=== PATIENT | female | born 1940 | race Caucasian/White ===

== ENCOUNTER 2020-08-30 03:01 | Outpatient (RCR) | payer MEDICARE, OTHER, SELFPAY ==
[2020-08-02 10:23] LABS: Abs Immature Grans 0.01 10^3/uL (0.0-0.06); Absolute Basophil Count 0.04 10^3/uL (0.0-0.2); Absolute Eosinophil Count 0.49 10^3/uL (0.0-0.7); Absolute Lymphocyte Count 1.63 10^3/uL (1.2-3.4); Absolute Monocyte Count 0.57 10^3/uL (0.1-0.8); Absolute Neutrophil Count 4.72 10^3/uL (1.2-6.7); Basophils % 0.5; Eosinophils % 6.6; HCT 31.7 % (36.0-46.0); Immature Grans % 0.1; Lymphocytes % 21.8; MCH 28.4 pg (27.0-33.0); MCHC 31.5 % (32.0-36.0); MCV 90.1 fL (80-95); Monocytes % 7.6; Neutrophils % 63.4; Nucleated RBC 0 %; Platelet Count 237 10^3/uL (130-400); RBC 3.52 10^6/uL (3.93-5.22); RDW 12.9 % (11.7-14.6); RDW-SD 42.3 fL; WBC 7.46 10^3/uL (4.4-10.8)
[2020-08-02 10:45] LABS: ALT 52 U/L (14-59); AST 37 U/L (15-37); Alkaline Phosphatase 141 U/L (46-116); Anion Gap 8.4 mmol/L (3-11); BUN 23 mg/dL (7-18); Bilirubin, Total 0.5 mg/dL (0.2-1.0); CO2 29.6 mmol/L (21.0-32.0); CREATININE 1.1 mg/dL (0.55-1.02); Chloride 103 mmol/L (98-107); Estimated GFR 47.91 (mL/min/1.73m2); FREE T4 1.11 ng/dL (0.76-1.46); Glucose 141 mg/dL (74-106); Potassium 3.2 mmol/L (3.5-5.1); Sodium 141 mmol/L (136-145); Total Protein 6.9 g/dL (6.4-8.2)
[2020-08-09] MEDS: Normal Saline Flush 10 ML SYR IVP (12:13)
[2020-08-09 14:11] LABS: HCT 30.7 % (36.0-46.0); HGB 9.8 g/dL (11.2-15.7); MCH 28.3 pg (27.0-33.0); MCHC 31.9 % (32.0-36.0); MCV 88.7 fL (80-95); MPV 10.5 fL (8.0-11.0); Platelet Count 334 10^3/uL (130-400); RBC 3.46 10^6/uL (3.93-5.22); RDW 12.9 % (11.7-14.6); RDW-SD 41.6 fL
[2020-08-09 14:12] LABS: Abs Immature Grans 0.01 10^3/uL (0.0-0.06); Absolute Basophil Count 0.04 10^3/uL (0.0-0.2); Absolute Eosinophil Count 0.32 10^3/uL (0.0-0.7); Absolute Lymphocyte Count 1.86 10^3/uL (1.2-3.4); Absolute Monocyte Count 0.35 10^3/uL (0.1-0.8); Absolute Neutrophil Count 4.22 10^3/uL (1.2-6.7); Basophils % 0.6; Eosinophils % 4.7; Immature Grans % 0.1; Lymphocytes % 27.4; Monocytes % 5.1; Neutrophils % 62.1; Nucleated RBC 0 %
[2020-08-09 14:13] LABS: Albumin 3.1 g/dL (3.4-5.0); Alkaline Phosphatase 161 U/L (46-116); BUN 22 mg/dL (7-18); Bilirubin, Total 0.4 mg/dL (0.2-1.0); CREATININE 1.1 mg/dL (0.55-1.02); Calcium 9.4 mg/dL (8.5-10.1); Chloride 104 mmol/L (98-107); Estimated GFR 47.91 (mL/min/1.73m2); Glucose 116 mg/dL (74-106); Sodium 139 mmol/L (136-145); Total Protein 7.3 g/dL (6.4-8.2)
[2020-08-09 14:14] LABS: ALT 37 U/L (14-59); AST 21 U/L (15-37); Anion Gap 8.4 mmol/L (3-11); CO2 26.6 mmol/L (21.0-32.0); FREE T4 1.19 ng/dL (0.76-1.46); TSH 2.65 uIU/mL (0.36-3.74)
[2020-08-10 20:05] LABS: Cancer Ag 15-3 27 U/mL (<30)
[2020-08-16] MEDS: Normal Saline Flush 10 ML SYR IVP (09:24)
[2020-08-16 09:43] LABS: Abs Immature Grans 0.03 10^3/uL (0.0-0.06); Absolute Basophil Count 0.05 10^3/uL (0.0-0.2); Absolute Eosinophil Count 0.23 10^3/uL (0.0-0.7); Absolute Lymphocyte Count 1.62 10^3/uL (1.2-3.4); Absolute Monocyte Count 0.34 10^3/uL (0.1-0.8); Absolute Neutrophil Count 3.63 10^3/uL (1.2-6.7); Basophils % 0.8; Eosinophils % 3.9; HCT 29.5 % (36.0-46.0); HGB 9.6 g/dL (11.2-15.7); Immature Grans % 0.5; Lymphocytes % 27.5; MCH 28.7 pg (27.0-33.0); MCHC 32.5 % (32.0-36.0); MCV 88.1 fL (80-95); MPV 10.7 fL (8.0-11.0); Monocytes % 5.8; Neutrophils % 61.5; Nucleated RBC 0 %; Platelet Count 396 10^3/uL (130-400); RBC 3.35 10^6/uL (3.93-5.22); RDW 13.2 % (11.7-14.6); RDW-SD 41.9 fL
[2020-08-16 09:55] LABS: ALT 26 U/L (14-59); AST 17 U/L (15-37); Albumin 2.9 g/dL (3.4-5.0); Alkaline Phosphatase 149 U/L (46-116); Anion Gap 8.4 mmol/L (3-11); BUN 21 mg/dL (7-18); Bilirubin, Total 0.4 mg/dL (0.2-1.0); CO2 27.6 mmol/L (21.0-32.0); CREATININE 1.1 mg/dL (0.55-1.02); Chloride 104 mmol/L (98-107); Estimated GFR 47.91 (mL/min/1.73m2); Glucose 125 mg/dL (74-106); Potassium 3.5 mmol/L (3.5-5.1); Sodium 140 mmol/L (136-145); Total Protein 7.2 g/dL (6.4-8.2)
[2020-08-30] MEDS: Normal Saline Flush 10 ML SYR IVP (09:41)
[2020-08-30 09:59] LABS: Absolute Basophil Count 0.05 10^3/uL (0.0-0.2); Absolute Eosinophil Count 0.36 10^3/uL (0.0-0.7); Absolute Lymphocyte Count 2.03 10^3/uL (1.2-3.4); Absolute Monocyte Count 0.98 10^3/uL (0.1-0.8); Absolute Neutrophil Count 5.16 10^3/uL (1.2-6.7); Basophils % 0.6; Eosinophils % 4.1; HCT 29.9 % (36.0-46.0); HGB 9.5 g/dL (11.2-15.7); Immature Grans % 1.2; Lymphocytes % 23.4; MCH 28.3 pg (27.0-33.0); MCHC 31.8 % (32.0-36.0); MPV 10.7 fL (8.0-11.0); Monocytes % 11.3; Neutrophils % 59.4; Nucleated RBC 0 %; Platelet Count 354 10^3/uL (130-400); RBC 3.36 10^6/uL (3.93-5.22); RDW 14.2 % (11.7-14.6); RDW-SD 45.6 fL; WBC 8.68 10^3/uL (4.4-10.8)
[2020-08-30 10:21] LABS: ALT 28 U/L (14-59); AST 21 U/L (15-37); Albumin 2.9 g/dL (3.4-5.0); Alkaline Phosphatase 182 U/L (46-116); Anion Gap 6.9 mmol/L (3-11); BUN 16 mg/dL (7-18); Bilirubin, Total 0.4 mg/dL (0.2-1.0); CO2 30.1 mmol/L (21.0-32.0); Calcium 8.6 mg/dL (8.5-10.1); Chloride 103 mmol/L (98-107); Estimated GFR 53.48 (mL/min/1.73m2); FREE T4 1.23 ng/dL (0.76-1.46); Glucose 106 mg/dL (74-106); Potassium 3.6 mmol/L (3.5-5.1); Sodium 140 mmol/L (136-145); TSH 2.66 uIU/mL (0.36-3.74)
== END 2020-08-31 23:59 | disposition home or self-care (01) ==
LOC: INF 03:01
PROVIDERS: PCP Family Medicine; Visit Provider Internal Medicine
DX: C50.919 Malignant neoplasm of unspecified site of unspecified female breast (principal); R94.6 Abnormal results of thyroid function studies; C77.1 Secondary and unspecified malignant neoplasm of intrathoracic lymph nodes; Z45.2 Encounter for adjustment and management of vascular access device
CPT/HCPCS: 36415; 36591; 80053; 86304; 84439; 84443; 85025; 86300

== ENCOUNTER 2020-09-27 02:36 | Outpatient (RCR) | payer MEDICARE, OTHER, SELFPAY ==
[2020-09-06] MEDS: Normal Saline Flush 10 ML SYR IVP (09:43)
[2020-09-06 09:57] LABS: Abs Immature Grans 0.04 10^3/uL (0.0-0.06); Absolute Basophil Count 0.04 10^3/uL (0.0-0.2); Absolute Eosinophil Count 0.42 10^3/uL (0.0-0.7); Absolute Lymphocyte Count 2.09 10^3/uL (1.2-3.4); Basophils % 0.5; Eosinophils % 5.5; HCT 30.1 % (36.0-46.0); HGB 9.7 g/dL (11.2-15.7); Immature Grans % 0.5; Lymphocytes % 27.2; MCH 28.3 pg (27.0-33.0); MCHC 32.2 % (32.0-36.0); MCV 87.8 fL (80-95); MPV 10.6 fL (8.0-11.0); Monocytes % 5.2; Neutrophils % 61.1; Nucleated RBC 0 %; Platelet Count 391 10^3/uL (130-400); RBC 3.43 10^6/uL (3.93-5.22); RDW 14.2 % (11.7-14.6); RDW-SD 45.1 fL; WBC 7.69 10^3/uL (4.4-10.8)
[2020-09-06 10:24] LABS: ALT 24 U/L (14-59); AST 16 U/L (15-37); Alkaline Phosphatase 174 U/L (46-116); Anion Gap 10.3 mmol/L (3-11); BUN 25 mg/dL (7-18); Bilirubin, Total 0.4 mg/dL (0.2-1.0); CO2 28.7 mmol/L (21.0-32.0); Calcium 9.2 mg/dL (8.5-10.1); Chloride 100 mmol/L (98-107); Estimated GFR 53.48 (mL/min/1.73m2); FREE T4 1.23 ng/dL (0.76-1.46); Glucose 147 mg/dL (74-106); Potassium 3.3 mmol/L (3.5-5.1); Sodium 139 mmol/L (136-145); TSH 2.87 uIU/mL (0.36-3.74); Total Protein 7.2 g/dL (6.4-8.2)
[2020-09-13] MEDS: Normal Saline Flush 10 ML SYR IVP (09:22)
[2020-09-13 09:33] LABS: Abs Immature Grans 0.03 10^3/uL (0.0-0.06); Absolute Basophil Count 0.05 10^3/uL (0.0-0.2); Absolute Eosinophil Count 0.42 10^3/uL (0.0-0.7); Absolute Lymphocyte Count 1.88 10^3/uL (1.2-3.4); Absolute Monocyte Count 0.36 10^3/uL (0.1-0.8); Absolute Neutrophil Count 3.91 10^3/uL (1.2-6.7); Basophils % 0.8; Eosinophils % 6.3; HGB 9.6 g/dL (11.2-15.7); Immature Grans % 0.5; Lymphocytes % 28.3; MCH 28.7 pg (27.0-33.0); MCV 89.6 fL (80-95); MPV 10.7 fL (8.0-11.0); Monocytes % 5.4; Neutrophils % 58.7; Nucleated RBC 0 %; Platelet Count 369 10^3/uL (130-400); RBC 3.35 10^6/uL (3.93-5.22); RDW-SD 46.8 fL; WBC 6.65 10^3/uL (4.4-10.8)
[2020-09-13 10:05] LABS: ALT 22 U/L (14-59); AST 18 U/L (15-37); Albumin 3.2 g/dL (3.4-5.0); Alkaline Phosphatase 187 U/L (46-116); Anion Gap 9.6 mmol/L (3-11); BUN 27 mg/dL (7-18); Bilirubin, Total 0.5 mg/dL (0.2-1.0); CO2 26.4 mmol/L (21.0-32.0); CREATININE 1.2 mg/dL (0.55-1.02); Calcium 9.2 mg/dL (8.5-10.1); Chloride 103 mmol/L (98-107); Estimated GFR 43.34 (mL/min/1.73m2); FREE T4 1.19 ng/dL (0.76-1.46); Glucose 106 mg/dL (74-106); Potassium 4.5 mmol/L (3.5-5.1); Sodium 139 mmol/L (136-145); TSH 3.52 uIU/mL (0.36-3.74); Total Protein 7.4 g/dL (6.4-8.2)
[2020-09-27] MEDS: Normal Saline Flush 10 ML SYR IVP (09:16)
[2020-09-27 09:34] LABS: Abs Immature Grans 0.07 10^3/uL (0.0-0.06); Absolute Basophil Count 0.05 10^3/uL (0.0-0.2); Absolute Eosinophil Count 0.34 10^3/uL (0.0-0.7); Absolute Lymphocyte Count 2.05 10^3/uL (1.2-3.4); Absolute Monocyte Count 1.06 10^3/uL (0.1-0.8); Absolute Neutrophil Count 6.66 10^3/uL (1.2-6.7); Basophils % 0.5; Eosinophils % 3.3; HCT 30.3 % (36.0-46.0); HGB 9.6 g/dL (11.2-15.7); Immature Grans % 0.7; MCH 28.8 pg (27.0-33.0); MCHC 31.7 % (32.0-36.0); MPV 10.4 fL (8.0-11.0); Monocytes % 10.4; Neutrophils % 65.1; Nucleated RBC 0 %; Platelet Count 370 10^3/uL (130-400); RBC 3.33 10^6/uL (3.93-5.22); RDW 16.4 % (11.7-14.6); RDW-SD 53.2 fL; WBC 10.23 10^3/uL (4.4-10.8)
[2020-09-27 09:58] LABS: ALT 22 U/L (14-59); AST 17 U/L (15-37); Albumin 3.1 g/dL (3.4-5.0); Alkaline Phosphatase 177 U/L (46-116); Anion Gap 6.9 mmol/L (3-11); BUN 18 mg/dL (7-18); Bilirubin, Total 0.4 mg/dL (0.2-1.0); CO2 28.1 mmol/L (21.0-32.0); Calcium 9.1 mg/dL (8.5-10.1); Chloride 107 mmol/L (98-107); Estimated GFR 53.48 (mL/min/1.73m2); FREE T4 1.24 ng/dL (0.76-1.46); Glucose 109 mg/dL (74-106); Sodium 142 mmol/L (136-145); TSH 3.11 uIU/mL (0.36-3.74)
== END 2020-09-30 23:59 | disposition home or self-care (01) ==
LOC: INF 02:36
PROVIDERS: PCP Family Medicine; Visit Provider Internal Medicine
DX: C50.919 Malignant neoplasm of unspecified site of unspecified female breast (principal); R94.6 Abnormal results of thyroid function studies; C77.1 Secondary and unspecified malignant neoplasm of intrathoracic lymph nodes
CPT/HCPCS: 36415; 80053; 84439; 84443; 85025

== ENCOUNTER 2020-10-25 02:48 | Outpatient (RCR) | payer MEDICARE, OTHER, SELFPAY ==
[2020-10-04] MEDS: Normal Saline Flush 10 ML SYR IVP (08:57)
[2020-10-04 09:09] LABS: Abs Immature Grans 0.03 10^3/uL (0.0-0.06); Absolute Basophil Count 0.05 10^3/uL (0.0-0.2); Absolute Eosinophil Count 0.29 10^3/uL (0.0-0.7); Absolute Lymphocyte Count 1.68 10^3/uL (1.2-3.4); Absolute Monocyte Count 0.55 10^3/uL (0.1-0.8); Absolute Neutrophil Count 3.66 10^3/uL (1.2-6.7); Basophils % 0.8; Eosinophils % 4.6; HCT 29.1 % (36.0-46.0); HGB 9.2 g/dL (11.2-15.7); Immature Grans % 0.5; Lymphocytes % 26.8; MCH 28.9 pg (27.0-33.0); MCHC 31.6 % (32.0-36.0); MCV 91.5 fL (80-95); MPV 10.2 fL (8.0-11.0); Monocytes % 8.8; Neutrophils % 58.5; Nucleated RBC 0 %; Platelet Count 352 10^3/uL (130-400); RBC 3.18 10^6/uL (3.93-5.22); RDW-SD 52.5 fL; WBC 6.26 10^3/uL (4.4-10.8)
[2020-10-04 09:30] LABS: ALT 22 U/L (14-59); AST 15 U/L (15-37); Alkaline Phosphatase 150 U/L (46-116); Anion Gap 8.7 mmol/L (3-11); BUN 22 mg/dL (7-18); Bilirubin, Total 0.5 mg/dL (0.2-1.0); CO2 29.3 mmol/L (21.0-32.0); CREATININE 1.1 mg/dL (0.55-1.02); Calcium 9.3 mg/dL (8.5-10.1); Chloride 104 mmol/L (98-107); Estimated GFR 47.91 (mL/min/1.73m2); FREE T4 1.21 ng/dL (0.76-1.46); Glucose 110 mg/dL (74-106); Potassium 3.6 mmol/L (3.5-5.1); Sodium 142 mmol/L (136-145); TSH 3.23 uIU/mL (0.36-3.74); Total Protein 7.1 g/dL (6.4-8.2)
[2020-10-07 16:47] LABS: Cancer Ag 15-3 30 U/mL (<30)
[2020-10-11] MEDS: Normal Saline Flush 10 ML SYR IVP (09:36)
[2020-10-11 09:43] LABS: Abs Immature Grans 0.03 10^3/uL (0.0-0.06); Absolute Basophil Count 0.04 10^3/uL (0.0-0.2); Absolute Eosinophil Count 0.25 10^3/uL (0.0-0.7); Absolute Lymphocyte Count 1.59 10^3/uL (1.2-3.4); Absolute Monocyte Count 0.34 10^3/uL (0.1-0.8); Absolute Neutrophil Count 3.35 10^3/uL (1.2-6.7); Basophils % 0.7; Eosinophils % 4.5; HCT 28.1 % (36.0-46.0); HGB 8.6 g/dL (11.2-15.7); Immature Grans % 0.5; Lymphocytes % 28.4; MCH 28.5 pg (27.0-33.0); MCHC 30.6 % (32.0-36.0); MPV 10.3 fL (8.0-11.0); Monocytes % 6.1; Neutrophils % 59.8; Nucleated RBC 0 %; Platelet Count 368 10^3/uL (130-400); RBC 3.02 10^6/uL (3.93-5.22); RDW 16.7 % (11.7-14.6); RDW-SD 55.7 fL
[2020-10-11 10:04] LABS: ALT 23 U/L (14-59); AST 15 U/L (15-37); Albumin 3.4 g/dL (3.4-5.0); Alkaline Phosphatase 157 U/L (46-116); Anion Gap 8.5 mmol/L (3-11); BUN 24 mg/dL (7-18); Bilirubin, Total 0.6 mg/dL (0.2-1.0); CO2 29.5 mmol/L (21.0-32.0); CREATININE 1.1 mg/dL (0.55-1.02); Calcium 9.5 mg/dL (8.5-10.1); Chloride 105 mmol/L (98-107); Estimated GFR 47.91 (mL/min/1.73m2); FREE T4 1.33 ng/dL (0.76-1.46); Glucose 110 mg/dL (74-106); Potassium 3.8 mmol/L (3.5-5.1); Sodium 143 mmol/L (136-145); TSH 2.62 uIU/mL (0.36-3.74); Total Protein 7.4 g/dL (6.4-8.2)
== END 2020-10-31 23:59 | disposition home or self-care (01) ==
LOC: INF 02:48
PROVIDERS: PCP Family Medicine; Visit Provider Internal Medicine
DX: C50.919 Malignant neoplasm of unspecified site of unspecified female breast (principal); R94.6 Abnormal results of thyroid function studies; C77.1 Secondary and unspecified malignant neoplasm of intrathoracic lymph nodes
CPT/HCPCS: 36415; 80053; 86304; 84439; 84443; 85025; 86300

== ENCOUNTER 2020-11-30 02:28 | Outpatient (RCR) | payer MEDICARE, OTHER, SELFPAY ==
[2020-11-08] MEDS: Normal Saline Flush 10 ML SYR IVP (08:51)
[2020-11-08 08:58] LABS: Abs Immature Grans 0.01 10^3/uL (0.0-0.06); Absolute Basophil Count 0.03 10^3/uL (0.0-0.2); Absolute Eosinophil Count 0.44 10^3/uL (0.0-0.7); Absolute Lymphocyte Count 1.54 10^3/uL (1.2-3.4); Absolute Monocyte Count 0.28 10^3/uL (0.1-0.8); Absolute Neutrophil Count 4.61 10^3/uL (1.2-6.7); Basophils % 0.4; Eosinophils % 6.4; HCT 29.2 % (36.0-46.0); HGB 9.1 g/dL (11.2-15.7); Immature Grans % 0.1; Lymphocytes % 22.3; MCHC 31.2 % (32.0-36.0); MPV 10.4 fL (8.0-11.0); Monocytes % 4.1; Neutrophils % 66.7; Nucleated RBC 0 %; Platelet Count 264 10^3/uL (130-400); RBC 3.14 10^6/uL (3.93-5.22); RDW-SD 53.9 fL; WBC 6.91 10^3/uL (4.4-10.8)
[2020-11-08 09:25] LABS: ALT 18 U/L (14-59); AST 15 U/L (15-37); Albumin 2.8 g/dL (3.4-5.0); Alkaline Phosphatase 142 U/L (46-116); BUN 26 mg/dL (7-18); Bilirubin, Total 0.6 mg/dL (0.2-1.0); CREATININE 1.1 mg/dL (0.55-1.02); Calcium 9.2 mg/dL (8.5-10.1); Chloride 105 mmol/L (98-107); Estimated GFR 47.91 (mL/min/1.73m2); FREE T4 1.18 ng/dL (0.76-1.46); Glucose 125 mg/dL (74-106); Potassium 3.7 mmol/L (3.5-5.1); Sodium 143 mmol/L (136-145); TSH 4.21 uIU/mL (0.36-3.74); Total Protein 6.9 g/dL (6.4-8.2)
[2020-11-16 08:48] LABS: Abs Immature Grans 0.02 10^3/uL (0.0-0.06); Absolute Basophil Count 0.03 10^3/uL (0.0-0.2); Absolute Eosinophil Count 0.46 10^3/uL (0.0-0.7); Absolute Lymphocyte Count 1.62 10^3/uL (1.2-3.4); Absolute Monocyte Count 0.47 10^3/uL (0.1-0.8); Absolute Neutrophil Count 3.04 10^3/uL (1.2-6.7); Basophils % 0.5; Eosinophils % 8.2; HCT 28.7 % (36.0-46.0); Immature Grans % 0.4; Lymphocytes % 28.7; MCH 29.2 pg (27.0-33.0); MCHC 31.4 % (32.0-36.0); MCV 93.2 fL (80-95); MPV 9.8 fL (8.0-11.0); Monocytes % 8.3; Neutrophils % 53.9; Nucleated RBC 0 %; Platelet Count 416 10^3/uL (130-400); RBC 3.08 10^6/uL (3.93-5.22); WBC 5.64 10^3/uL (4.4-10.8)
[2020-11-16 09:10] LABS: ALT 20 U/L (14-59); AST 15 U/L (15-37); Albumin 2.9 g/dL (3.4-5.0); Alkaline Phosphatase 155 U/L (46-116); Anion Gap 6.8 mmol/L (3-11); BUN 18 mg/dL (7-18); Bilirubin, Total 0.5 mg/dL (0.2-1.0); CO2 29.2 mmol/L (21.0-32.0); CREATININE 1.1 mg/dL (0.55-1.02); Calcium 8.9 mg/dL (8.5-10.1); Chloride 105 mmol/L (98-107); Estimated GFR 47.91 (mL/min/1.73m2); Glucose 110 mg/dL (74-106); Potassium 3.6 mmol/L (3.5-5.1); Sodium 141 mmol/L (136-145); TSH 2.83 uIU/mL (0.36-3.74); Total Protein 6.8 g/dL (6.4-8.2)
[2020-11-16] MEDS: Normal Saline Flush 10 ML SYR IVP (09:55)
[2020-11-30 11:04] LABS: Abs Immature Grans 0.06 10^3/uL (0.0-0.06); Absolute Basophil Count 0.04 10^3/uL (0.0-0.2); Absolute Eosinophil Count 0.24 10^3/uL (0.0-0.7); Absolute Lymphocyte Count 2.08 10^3/uL (1.2-3.4); Absolute Monocyte Count 0.88 10^3/uL (0.1-0.8); Absolute Neutrophil Count 5.05 10^3/uL (1.2-6.7); Basophils % 0.5; Eosinophils % 2.9; HCT 30.3 % (36.0-46.0); HGB 9.2 g/dL (11.2-15.7); Immature Grans % 0.7; Lymphocytes % 24.9; MCH 28.2 pg (27.0-33.0); MCHC 30.4 % (32.0-36.0); MCV 92.9 fL (80-95); MPV 9.9 fL (8.0-11.0); Monocytes % 10.5; Neutrophils % 60.5; Nucleated RBC 0 %; Platelet Count 339 10^3/uL (130-400); RBC 3.26 10^6/uL (3.93-5.22); RDW 15.7 % (11.7-14.6); WBC 8.35 10^3/uL (4.4-10.8)
[2020-11-30] MEDS: Normal Saline Flush 10 ML SYR IVP (11:16)
[2020-11-30 11:25] LABS: ALT 18 U/L (14-59); AST 15 U/L (15-37); Albumin 2.8 g/dL (3.4-5.0); Alkaline Phosphatase 148 U/L (46-116); Anion Gap 4.2 mmol/L (3-11); BUN 21 mg/dL (7-18); Bilirubin, Total 0.5 mg/dL (0.2-1.0); CO2 31.8 mmol/L (21.0-32.0); Calcium 9.1 mg/dL (8.5-10.1); Chloride 105 mmol/L (98-107); Estimated GFR 53.48 (mL/min/1.73m2); FREE T4 1.27 ng/dL (0.76-1.46); Glucose 106 mg/dL (74-106); Potassium 3.6 mmol/L (3.5-5.1); Sodium 141 mmol/L (136-145); TSH 2.67 uIU/mL (0.36-3.74); Total Protein 6.6 g/dL (6.4-8.2)
== END 2020-11-30 23:59 | disposition home or self-care (01) ==
LOC: INF 02:28
PROVIDERS: PCP Family Medicine; Visit Provider Internal Medicine
DX: C50.919 Malignant neoplasm of unspecified site of unspecified female breast (principal); R94.6 Abnormal results of thyroid function studies; C77.1 Secondary and unspecified malignant neoplasm of intrathoracic lymph nodes; Z45.2 Encounter for adjustment and management of vascular access device
CPT/HCPCS: 36591; 80053; 84439; 84443; 85025

== ENCOUNTER 2020-12-16 21:34 | Outpatient (CLI) | payer MEDICARE, OTHER, SELFPAY ==
--- NOTE | 2020-12-16 | DI.US_ITS ---
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 TECHNIQUE: Lower extremity venous ultrasound performed using grayscale, color-flow, and spectral Do ppler analysis. COMPARISON: No exams were available for comparison FINDINGS: The common femoral, femoral and popliteal veins demonstrate normal compressibility, augmentation, and color Doppler. The posterior tibial veins are patent. No saphenous vein thrombosis or other superfi cial venous thrombosis is seen. No hematoma or Fisher's cyst is seen. IMPRESSION: Negative lower extremity ultrasound. No evidence of DVT. DATA REPOSITORY:
== END 2020-12-16 21:54 ==
PROVIDERS: PCP Family Medicine; Visit Provider Internal Medicine
DX: R60.0 Localized edema (principal); C50.919 Malignant neoplasm of unspecified site of unspecified female breast
CPT/HCPCS: 93971

== ENCOUNTER 2020-12-27 03:14 | Outpatient (RCR) | payer MEDICARE, OTHER, SELFPAY ==
[2020-12-06] MEDS: Normal Saline Flush 10 ML SYR IVP (10:08)
[2020-12-06 10:15] LABS: Abs Immature Grans 0.02 10^3/uL (0.0-0.06); Absolute Basophil Count 0.03 10^3/uL (0.0-0.2); Absolute Eosinophil Count 0.16 10^3/uL (0.0-0.7); Absolute Lymphocyte Count 1.77 10^3/uL (1.2-3.4); Absolute Neutrophil Count 4.81 10^3/uL (1.2-6.7); Basophils % 0.4; Eosinophils % 2.3; HCT 27.9 % (36.0-46.0); HGB 8.8 g/dL (11.2-15.7); Immature Grans % 0.3; MCH 28.6 pg (27.0-33.0); MCHC 31.5 % (32.0-36.0); MCV 90.6 fL (80-95); MPV 10.6 fL (8.0-11.0); Monocytes % 4.2; Neutrophils % 67.8; Nucleated RBC 0 %; Platelet Count 312 10^3/uL (130-400); RBC 3.08 10^6/uL (3.93-5.22); RDW 15.8 % (11.7-14.6); RDW-SD 51.5 fL; WBC 7.09 10^3/uL (4.4-10.8)
[2020-12-06 10:39] LABS: ALT 24 U/L (14-59); AST 22 U/L (15-37); Albumin 2.7 g/dL (3.4-5.0); Alkaline Phosphatase 143 U/L (46-116); BUN 16 mg/dL (7-18); Bilirubin, Total 0.4 mg/dL (0.2-1.0); CREATININE 0.9 mg/dL (0.55-1.02); Calcium 8.9 mg/dL (8.5-10.1); Chloride 106 mmol/L (98-107); FREE T4 1.23 ng/dL (0.76-1.46); Glucose 128 mg/dL (74-106); Potassium 3.7 mmol/L (3.5-5.1); Sodium 142 mmol/L (136-145); TSH 3.61 uIU/mL (0.36-3.74); Total Protein 6.5 g/dL (6.4-8.2)
[2020-12-14] MEDS: Normal Saline Flush 10 ML SYR IVP (12:40)
[2020-12-14 12:52] LABS: Abs Immature Grans 0.03 10^3/uL (0.0-0.06); Absolute Basophil Count 0.04 10^3/uL (0.0-0.2); Absolute Eosinophil Count 0.32 10^3/uL (0.0-0.7); Absolute Lymphocyte Count 1.71 10^3/uL (1.2-3.4); Absolute Monocyte Count 0.46 10^3/uL (0.1-0.8); Absolute Neutrophil Count 3.56 10^3/uL (1.2-6.7); Basophils % 0.7; Eosinophils % 5.2; HGB 8.3 g/dL (11.2-15.7); Immature Grans % 0.5; Lymphocytes % 27.9; MCH 28.9 pg (27.0-33.0); MCHC 31.9 % (32.0-36.0); MCV 90.6 fL (80-95); MPV 10.3 fL (8.0-11.0); Monocytes % 7.5; Neutrophils % 58.2; Nucleated RBC 0 %; Platelet Count 392 10^3/uL (130-400); RBC 2.87 10^6/uL (3.93-5.22); RDW 16.5 % (11.7-14.6); RDW-SD 54.3 fL; WBC 6.12 10^3/uL (4.4-10.8)
[2020-12-14 13:16] LABS: ALT 25 U/L (14-59); AST 17 U/L (15-37); Albumin 2.8 g/dL (3.4-5.0); Alkaline Phosphatase 142 U/L (46-116); Anion Gap 9.3 mmol/L (3-11); BUN 43 mg/dL (7-18); Bilirubin, Total 0.4 mg/dL (0.2-1.0); CO2 28.7 mmol/L (21.0-32.0); CREATININE 1.8 mg/dL (0.55-1.02); Calcium 8.9 mg/dL (8.5-10.1); Chloride 103 mmol/L (98-107); Estimated GFR 27.14 (mL/min/1.73m2); FREE T4 1.23 ng/dL (0.76-1.46); Glucose 126 mg/dL (74-106); Potassium 3.9 mmol/L (3.5-5.1); Sodium 141 mmol/L (136-145); TSH 4.64 uIU/mL (0.36-3.74); Total Protein 6.6 g/dL (6.4-8.2)
[2020-12-14 15:16] LABS: Ferritin 161 ng/mL (8-252)
[2020-12-21] MEDS: Heparin 500 UNITS/5 ML SYRINGE IV (10:04)
[2020-12-21] MEDS: Normal Saline Flush 10 ML SYR IVP (10:04)
[2020-12-21 10:44] LABS: ALT 30 U/L (14-59); AST 13 U/L (15-37); Albumin 2.9 g/dL (3.4-5.0); Alkaline Phosphatase 122 U/L (46-116); BUN 44 mg/dL (7-18); Bilirubin, Total 0.3 mg/dL (0.2-1.0); CREATININE 1.3 mg/dL (0.55-1.02); Calcium 9.3 mg/dL (8.5-10.1); Chloride 104 mmol/L (98-107); Estimated GFR 39.51 (mL/min/1.73m2); Glucose 94 mg/dL (74-106); Potassium 3.9 mmol/L (3.5-5.1); Sodium 139 mmol/L (136-145); Total Protein 6.6 g/dL (6.4-8.2)
[2020-12-27] MEDS: Normal Saline Flush 10 ML SYR IVP (13:00)
[2020-12-27 13:07] LABS: Absolute Basophil Count 0.03 10^3/uL (0.0-0.2); Absolute Eosinophil Count 0.12 10^3/uL (0.0-0.7); Absolute Lymphocyte Count 2.28 10^3/uL (1.2-3.4); Absolute Monocyte Count 0.71 10^3/uL (0.1-0.8); Absolute Neutrophil Count 13.72 10^3/uL (1.2-6.7); Basophils % 0.2; Eosinophils % 0.7; HCT 30.7 % (36.0-46.0); HGB 9.7 g/dL (11.2-15.7); Immature Grans % 2.3; Lymphocytes % 13.2; MCHC 31.6 % (32.0-36.0); MCV 91.9 fL (80-95); MPV 10.3 fL (8.0-11.0); Monocytes % 4.1; Neutrophils % 79.5; Nucleated RBC 0 %; Platelet Count 408 10^3/uL (130-400); RBC 3.34 10^6/uL (3.93-5.22); RDW 17.2 % (11.7-14.6); RDW-SD 57.8 fL; WBC 17.26 10^3/uL (4.4-10.8)
[2020-12-27 13:45] LABS: ALT 31 U/L (14-59); AST 17 U/L (15-37); Alkaline Phosphatase 134 U/L (46-116); Anion Gap 9.4 mmol/L (3-11); BUN 33 mg/dL (7-18); Bilirubin, Total 0.3 mg/dL (0.2-1.0); CO2 27.6 mmol/L (21.0-32.0); CREATININE 1.1 mg/dL (0.55-1.02); Calcium 9.3 mg/dL (8.5-10.1); Chloride 103 mmol/L (98-107); Estimated GFR 47.91 (mL/min/1.73m2); FREE T4 1.22 ng/dL (0.76-1.46); Glucose 122 mg/dL (74-106); Potassium 4.4 mmol/L (3.5-5.1); Sodium 140 mmol/L (136-145); TSH 3.11 uIU/mL (0.36-3.74); Total Protein 6.4 g/dL (6.4-8.2)
== END 2020-12-31 23:59 | disposition home or self-care (01) ==
LOC: INF 03:14
PROVIDERS: PCP Family Medicine; Visit Provider Internal Medicine
DX: C50.919 Malignant neoplasm of unspecified site of unspecified female breast (principal); C77.1 Secondary and unspecified malignant neoplasm of intrathoracic lymph nodes; R94.6 Abnormal results of thyroid function studies; Z45.2 Encounter for adjustment and management of vascular access device; D64.9 Anemia, unspecified
CPT/HCPCS: 36591; 80053; 82728; 84439; 84443; 85025

== ENCOUNTER 2021-01-24 03:50 | Outpatient (RCR) | payer MEDICARE, OTHER, SELFPAY ==
[2021-01-03] MEDS: Normal Saline Flush 10 ML SYR IVP (10:31)
[2021-01-03 11:01] LABS: Abs Immature Grans 0.06 10^3/uL (0.0-0.06); Absolute Basophil Count 0.03 10^3/uL (0.0-0.2); Absolute Eosinophil Count 0.23 10^3/uL (0.0-0.7); Absolute Lymphocyte Count 1.87 10^3/uL (1.2-3.4); Absolute Monocyte Count 0.58 10^3/uL (0.1-0.8); Absolute Neutrophil Count 6.96 10^3/uL (1.2-6.7); Basophils % 0.3; Eosinophils % 2.4; HCT 29.1 % (36.0-46.0); HGB 9.1 g/dL (11.2-15.7); Immature Grans % 0.6; Lymphocytes % 19.2; MCH 28.8 pg (27.0-33.0); MCHC 31.3 % (32.0-36.0); MCV 92.1 fL (80-95); Neutrophils % 71.5; Nucleated RBC 0 %; Platelet Count 257 10^3/uL (130-400); RBC 3.16 10^6/uL (3.93-5.22); RDW-SD 56.6 fL; WBC 9.73 10^3/uL (4.4-10.8)
[2021-01-03 11:23] LABS: ALT 30 U/L (14-59); AST 18 U/L (15-37); Albumin 2.8 g/dL (3.4-5.0); Alkaline Phosphatase 134 U/L (46-116); Anion Gap 4.9 mmol/L (3-11); BUN 23 mg/dL (7-18); Bilirubin, Total 0.3 mg/dL (0.2-1.0); CO2 31.1 mmol/L (21.0-32.0); CREATININE 0.9 mg/dL (0.55-1.02); Calcium 9.1 mg/dL (8.5-10.1); Chloride 103 mmol/L (98-107); Glucose 96 mg/dL (74-106); Potassium 3.6 mmol/L (3.5-5.1); Sodium 139 mmol/L (136-145); TSH 4.52 uIU/mL (0.36-3.74); Total Protein 6.1 g/dL (6.4-8.2)
[2021-01-10 11:11] LABS: Abs Immature Grans 0.01 10^3/uL (0.0-0.06); Absolute Basophil Count 0.03 10^3/uL (0.0-0.2); Absolute Eosinophil Count 0.22 10^3/uL (0.0-0.7); Absolute Lymphocyte Count 1.37 10^3/uL (1.2-3.4); Basophils % 0.6; Eosinophils % 4.1; HCT 26.4 % (36.0-46.0); HGB 8.2 g/dL (11.2-15.7); Immature Grans % 0.2; Lymphocytes % 25.7; MCH 28.5 pg (27.0-33.0); MCHC 31.1 % (32.0-36.0); MCV 91.7 fL (80-95); MPV 10.5 fL (8.0-11.0); Monocytes % 11.3; Neutrophils % 58.1; Nucleated RBC 0 %; Platelet Count 265 10^3/uL (130-400); RBC 2.88 10^6/uL (3.93-5.22); RDW 17.6 % (11.7-14.6); RDW-SD 58.6 fL; WBC 5.33 10^3/uL (4.4-10.8)
[2021-01-10 11:27] LABS: Anisocytosis 1+; Basophilic Stippling Present; Diff Comment RBC Morph Reviewed; Hypochromasia 1+
[2021-01-10 11:39] LABS: ALT 24 U/L (14-59); AST 18 U/L (15-37); Albumin 2.6 g/dL (3.4-5.0); Alkaline Phosphatase 116 U/L (46-116); Anion Gap 7.7 mmol/L (3-11); BUN 25 mg/dL (7-18); Bilirubin, Total 0.6 mg/dL (0.2-1.0); CO2 29.3 mmol/L (21.0-32.0); Calcium 8.5 mg/dL (8.5-10.1); Chloride 103 mmol/L (98-107); Estimated GFR 53.48 (mL/min/1.73m2); FREE T4 1.21 ng/dL (0.76-1.46); Glucose 103 mg/dL (74-106); Potassium 3.3 mmol/L (3.5-5.1); Sodium 140 mmol/L (136-145); TSH 3.47 uIU/mL (0.36-3.74); Total Protein 6.1 g/dL (6.4-8.2)
[2021-01-10] MEDS: Normal Saline Flush 10 ML SYR IVP (11:47)
== END 2021-01-31 23:59 | disposition home or self-care (01) ==
LOC: INF 03:50
PROVIDERS: PCP Family Medicine; Visit Provider Internal Medicine
DX: C50.919 Malignant neoplasm of unspecified site of unspecified female breast (principal); R94.6 Abnormal results of thyroid function studies; C77.1 Secondary and unspecified malignant neoplasm of intrathoracic lymph nodes; Z45.2 Encounter for adjustment and management of vascular access device
CPT/HCPCS: 36591; 80053; 84439; 84443; 85025

== ENCOUNTER 2021-02-07 03:34 | Outpatient (RCR) | payer MEDICARE, OTHER, SELFPAY ==
[2021-02-07] MEDS: Normal Saline Flush 10 ML SYR IVP (10:47)
[2021-02-07 11:10] LABS: Abs Immature Grans 0.04 10^3/uL (0.0-0.06); Absolute Basophil Count 0.06 10^3/uL (0.0-0.2); Absolute Eosinophil Count 0.56 10^3/uL (0.0-0.7); Absolute Lymphocyte Count 2.34 10^3/uL (1.2-3.4); Absolute Monocyte Count 1.05 10^3/uL (0.1-0.8); Absolute Neutrophil Count 8.15 10^3/uL (1.2-6.7); Basophils % 0.5; Eosinophils % 4.6; HCT 28.4 % (36.0-46.0); HGB 8.6 g/dL (11.2-15.7); Immature Grans % 0.3; Lymphocytes % 19.2; MCHC 30.3 % (32.0-36.0); MCV 89.3 fL (80-95); MPV 10.1 fL (8.0-11.0); Monocytes % 8.6; Neutrophils % 66.8; Nucleated RBC 0 %; Platelet Count 406 10^3/uL (130-400); RBC 3.18 10^6/uL (3.93-5.22); RDW 18.2 % (11.7-14.6)
[2021-02-07 11:38] LABS: ALT 27 U/L (14-59); AST 39 U/L (15-37); Albumin 2.5 g/dL (3.4-5.0); Alkaline Phosphatase 145 U/L (46-116); Anion Gap 8.1 mmol/L (3-11); BUN 20 mg/dL (7-18); Bilirubin, Total 0.6 mg/dL (0.2-1.0); CO2 28.9 mmol/L (21.0-32.0); Calcium 9.3 mg/dL (8.5-10.1); Chloride 98 mmol/L (98-107); Estimated GFR 53.48 (mL/min/1.73m2); FREE T4 1.42 ng/dL (0.76-1.46); Glucose 104 mg/dL (74-106); Potassium 4.1 mmol/L (3.5-5.1); Sodium 135 mmol/L (136-145); TSH 4.47 uIU/mL (0.36-3.74)
== END 2021-03-02 23:59 | disposition home or self-care (01) ==
LOC: INF 03:34
PROVIDERS: PCP Family Medicine; Visit Provider Internal Medicine
DX: C50.919 Malignant neoplasm of unspecified site of unspecified female breast (principal); Z45.2 Encounter for adjustment and management of vascular access device; C77.1 Secondary and unspecified malignant neoplasm of intrathoracic lymph nodes; R94.6 Abnormal results of thyroid function studies
CPT/HCPCS: 36591; 80053; 84439; 84443; 85025

== ENCOUNTER 2021-05-02 02:12 | Outpatient (RCR) | payer MEDICARE, OTHER, SELFPAY ==
[2021-04-04 14:07] LABS: Abs Immature Grans 0.05 10^3/uL (0.0-0.06); Absolute Basophil Count 0.04 10^3/uL (0.0-0.2); Absolute Eosinophil Count 0.55 10^3/uL (0.0-0.7); Absolute Monocyte Count 0.95 10^3/uL (0.1-0.8); Basophils % 0.4; Eosinophils % 4.9; HCT 35.4 % (36.0-46.0); HGB 10.7 g/dL (11.2-15.7); Immature Grans % 0.4; Lymphocytes % 22.4; MCH 25.1 pg (27.0-33.0); MCHC 30.2 % (32.0-36.0); MCV 83.1 fL (80-95); MPV 11.2 fL (8.0-11.0); Monocytes % 8.5; Neutrophils % 63.4; Nucleated RBC 0 %; Platelet Count 322 10^3/uL (130-400); RBC 4.26 10^6/uL (3.93-5.22); RDW 15.3 % (11.7-14.6); RDW-SD 46.7 fL; WBC 11.14 10^3/uL (4.4-10.8)
[2021-04-04 14:08] LABS: Absolute Neutrophil Count 7.06 10^3/uL (1.2-6.7)
[2021-04-04 14:24] LABS: ALT 18 U/L (14-59); AST 35 U/L (15-37); Albumin 2.8 g/dL (3.4-5.0); Alkaline Phosphatase 186 U/L (46-116); Anion Gap 10.3 mmol/L (3-11); BUN 18 mg/dL (7-18); Bilirubin, Total 0.6 mg/dL (0.2-1.0); CO2 25.7 mmol/L (21.0-32.0); CREATININE 0.8 mg/dL (0.55-1.02); Calcium 9.5 mg/dL (8.5-10.1); Chloride 100 mmol/L (98-107); Glucose 96 mg/dL (74-106); Sodium 136 mmol/L (136-145); Total Protein 7.2 g/dL (6.4-8.2)
[2021-04-11] MEDS: Normal Saline Flush 10 ML SYR IVP (08:37)
[2021-04-11 08:56] LABS: RBC 3.95 10^6/uL (3.93-5.22); WBC 6.58 10^3/uL (4.4-10.8)
[2021-04-11 08:57] LABS: Abs Immature Grans 0.01 10^3/uL (0.0-0.06); Absolute Basophil Count 0.02 10^3/uL (0.0-0.2); Absolute Eosinophil Count 0.08 10^3/uL (0.0-0.7); Absolute Lymphocyte Count 1.74 10^3/uL (1.2-3.4); Absolute Monocyte Count 0.69 10^3/uL (0.1-0.8); Absolute Neutrophil Count 4.04 10^3/uL (1.2-6.7); Basophils % 0.3; Eosinophils % 1.2; Immature Grans % 0.2; Lymphocytes % 26.4; MCH 25.3 pg (27.0-33.0); MCHC 31.3 % (32.0-36.0); MPV 10.1 fL (8.0-11.0); Monocytes % 10.5; Neutrophils % 61.4; Platelet Count 308 10^3/uL (130-400); RDW 14.9 % (11.7-14.6); RDW-SD 43.9 fL
[2021-04-11 09:03] LABS: Albumin 2.5 g/dL (3.4-5.0); BUN 17 mg/dL (7-18); Bilirubin, Total 0.7 mg/dL (0.2-1.0); CREATININE 0.8 mg/dL (0.55-1.02); Calcium 9.6 mg/dL (8.5-10.1); Glucose 94 mg/dL (74-106); Total Protein 7.4 g/dL (6.4-8.2)
[2021-04-11 09:04] LABS: ALT 20 U/L (14-59); AST 26 U/L (15-37); Alkaline Phosphatase 186 U/L (46-116); Anion Gap 8.6 mmol/L (3-11); CO2 30.4 mmol/L (21.0-32.0); Chloride 98 mmol/L (98-107); Potassium 3.6 mmol/L (3.5-5.1); Sodium 137 mmol/L (136-145)
[2021-04-18 09:16] LABS: Abs Immature Grans 0.02 10^3/uL (0.0-0.06); Absolute Basophil Count 0.03 10^3/uL (0.0-0.2); Absolute Eosinophil Count 0.11 10^3/uL (0.0-0.7); Absolute Lymphocyte Count 2.45 10^3/uL (1.2-3.4); Absolute Monocyte Count 0.58 10^3/uL (0.1-0.8); Absolute Neutrophil Count 1.81 10^3/uL (1.2-6.7); Basophils % 0.6; Eosinophils % 2.2; HGB 9.7 g/dL (11.2-15.7); Immature Grans % 0.4; MCH 25.3 pg (27.0-33.0); MCHC 30.3 % (32.0-36.0); MCV 83.3 fL (80-95); MPV 9.8 fL (8.0-11.0); Monocytes % 11.6; Neutrophils % 36.2; Nucleated RBC 0 %; Platelet Count 204 10^3/uL (130-400); RBC 3.84 10^6/uL (3.93-5.22); RDW 14.9 % (11.7-14.6); RDW-SD 45.4 fL
[2021-04-18] MEDS: Normal Saline Flush 10 ML SYR IVP (09:22)
[2021-04-18 09:29] LABS: BUN 14 mg/dL (7-18); CREATININE 0.7 mg/dL (0.55-1.02); Calcium 9.5 mg/dL (8.5-10.1); Glucose 98 mg/dL (74-106)
[2021-04-18 09:30] LABS: ALT 25 U/L (14-59); AST 29 U/L (15-37); Albumin 2.6 g/dL (3.4-5.0); Alkaline Phosphatase 186 U/L (46-116); Anion Gap 7.2 mmol/L (3-11); Bilirubin, Total 0.3 mg/dL (0.2-1.0); CO2 29.8 mmol/L (21.0-32.0); Chloride 104 mmol/L (98-107); Potassium 4.3 mmol/L (3.5-5.1); Sodium 141 mmol/L (136-145)
[2021-05-02] MEDS: Normal Saline Flush 10 ML SYR IVP (12:34)
[2021-05-02 12:40] LABS: Abs Immature Grans 0.03 10^3/uL (0.0-0.06); Absolute Basophil Count 0.04 10^3/uL (0.0-0.2); Absolute Eosinophil Count 0.37 10^3/uL (0.0-0.7); Absolute Lymphocyte Count 2.43 10^3/uL (1.2-3.4); Absolute Monocyte Count 1.03 10^3/uL (0.1-0.8); Absolute Neutrophil Count 5.21 10^3/uL (1.2-6.7); Basophils % 0.4; Eosinophils % 4.1; HCT 33.9 % (36.0-46.0); HGB 10.4 g/dL (11.2-15.7); Immature Grans % 0.3; Lymphocytes % 26.7; MCH 25.9 pg (27.0-33.0); MCHC 30.7 % (32.0-36.0); MCV 84.5 fL (80-95); Monocytes % 11.3; Neutrophils % 57.2; Nucleated RBC 0 %; Platelet Count 448 10^3/uL (130-400); RBC 4.01 10^6/uL (3.93-5.22); RDW 17.2 % (11.7-14.6); RDW-SD 49.5 fL; WBC 9.11 10^3/uL (4.4-10.8)
[2021-05-02 13:03] LABS: ALT 24 U/L (14-59); AST 31 U/L (15-37); Alkaline Phosphatase 181 U/L (46-116); Anion Gap 7.3 mmol/L (3-11); BUN 21 mg/dL (7-18); Bilirubin, Total 0.4 mg/dL (0.2-1.0); CO2 28.7 mmol/L (21.0-32.0); CREATININE 0.9 mg/dL (0.55-1.02); Calcium 9.3 mg/dL (8.5-10.1); Chloride 102 mmol/L (98-107); FREE T4 1.24 ng/dL (0.76-1.46); Glucose 98 mg/dL (74-106); Potassium 4.3 mmol/L (3.5-5.1); Sodium 138 mmol/L (136-145); TSH 3.37 uIU/mL (0.36-3.74); Total Protein 7.1 g/dL (6.4-8.2)
== END 2021-05-02 23:59 | disposition home or self-care (01) ==
LOC: INF 02:12
PROVIDERS: PCP Family Medicine; Visit Provider Internal Medicine
DX: C50.919 Malignant neoplasm of unspecified site of unspecified female breast (principal); C77.1 Secondary and unspecified malignant neoplasm of intrathoracic lymph nodes; Z45.2 Encounter for adjustment and management of vascular access device; R94.6 Abnormal results of thyroid function studies
CPT/HCPCS: 36415; 36591; 80053; 84439; 84443; 85025

== ENCOUNTER 2021-05-16 12:35 | Outpatient (RCR) | payer MEDICARE, OTHER, SELFPAY ==
[2021-05-09] MEDS: Normal Saline Flush 10 ML SYR IVP (10:56)
[2021-05-09 11:27] LABS: Abs Immature Grans 0.02 10^3/uL (0.0-0.06); Absolute Basophil Count 0.07 10^3/uL (0.0-0.2); Absolute Eosinophil Count 0.11 10^3/uL (0.0-0.7); Absolute Lymphocyte Count 2.32 10^3/uL (1.2-3.4); Absolute Monocyte Count 0.78 10^3/uL (0.1-0.8); Absolute Neutrophil Count 1.88 10^3/uL (1.2-6.7); Basophils % 1.4; Eosinophils % 2.1; HCT 30.9 % (36.0-46.0); HGB 9.4 g/dL (11.2-15.7); Immature Grans % 0.4; Lymphocytes % 44.8; MCH 25.9 pg (27.0-33.0); MCHC 30.4 % (32.0-36.0); MCV 85.1 fL (80-95); MPV 10.3 fL (8.0-11.0); Monocytes % 15.1; Neutrophils % 36.2; Nucleated RBC 0 %; Platelet Count 428 10^3/uL (130-400); RBC 3.63 10^6/uL (3.93-5.22); RDW-SD 50.9 fL; WBC 5.18 10^3/uL (4.4-10.8)
[2021-05-09 11:47] LABS: ALT 28 U/L (14-59); AST 34 U/L (15-37); Albumin 2.8 g/dL (3.4-5.0); Alkaline Phosphatase 191 U/L (46-116); BUN 22 mg/dL (7-18); Bilirubin, Total 0.3 mg/dL (0.2-1.0); CREATININE 0.8 mg/dL (0.55-1.02); Calcium 9.4 mg/dL (8.5-10.1); Chloride 103 mmol/L (98-107); FREE T4 1.18 ng/dL (0.76-1.46); Glucose 101 mg/dL (74-106); Potassium 3.6 mmol/L (3.5-5.1); Sodium 139 mmol/L (136-145); TSH 3.14 uIU/mL (0.36-3.74); Total Protein 6.9 g/dL (6.4-8.2)
[2021-05-16] MEDS: Normal Saline Flush 10 ML SYR IVP (12:39)
[2021-05-16 12:50] LABS: Abs Immature Grans 0.02 10^3/uL (0.0-0.06); Absolute Basophil Count 0.05 10^3/uL (0.0-0.2); Absolute Lymphocyte Count 2.51 10^3/uL (1.2-3.4); Absolute Monocyte Count 0.65 10^3/uL (0.1-0.8); Basophils % 0.8; Eosinophils % 1.6; HCT 30.4 % (36.0-46.0); HGB 9.4 g/dL (11.2-15.7); Immature Grans % 0.3; Lymphocytes % 40.9; MCHC 30.9 % (32.0-36.0); MCV 84.2 fL (80-95); MPV 9.6 fL (8.0-11.0); Monocytes % 10.6; Neutrophils % 45.8; Nucleated RBC 0 %; Platelet Count 181 10^3/uL (130-400); RBC 3.61 10^6/uL (3.93-5.22); RDW 17.4 % (11.7-14.6); RDW-SD 51.5 fL; WBC 6.13 10^3/uL (4.4-10.8)
[2021-05-16 13:02] LABS: ALT 42 U/L (14-59); AST 42 U/L (15-37); Albumin 2.8 g/dL (3.4-5.0); Alkaline Phosphatase 192 U/L (46-116); Anion Gap 6.6 mmol/L (3-11); BUN 21 mg/dL (7-18); Bilirubin, Total 0.4 mg/dL (0.2-1.0); CO2 30.4 mmol/L (21.0-32.0); CREATININE 0.8 mg/dL (0.55-1.02); Calcium 9.8 mg/dL (8.5-10.1); Chloride 103 mmol/L (98-107); Glucose 100 mg/dL (74-106); Potassium 3.8 mmol/L (3.5-5.1); Sodium 140 mmol/L (136-145); Total Protein 6.9 g/dL (6.4-8.2)
== END 2021-06-02 23:59 | disposition home or self-care (01) ==
LOC: INF 12:35
PROVIDERS: PCP Family Medicine; Visit Provider Internal Medicine
DX: C77.1 Secondary and unspecified malignant neoplasm of intrathoracic lymph nodes (principal); R94.6 Abnormal results of thyroid function studies; Z45.2 Encounter for adjustment and management of vascular access device
CPT/HCPCS: 36591; 80053; 84439; 84443; 85025

== ENCOUNTER 2021-06-27 03:35 | Outpatient (RCR) | payer MEDICARE, OTHER, SELFPAY ==
[2021-06-06] MEDS: Normal Saline Flush 10 ML SYR IVP (13:35)
[2021-06-06 13:48] LABS: Abs Immature Grans 0.05 10^3/uL (0.0-0.06); Absolute Basophil Count 0.05 10^3/uL (0.0-0.2); Absolute Eosinophil Count 0.44 10^3/uL (0.0-0.7); Absolute Lymphocyte Count 2.24 10^3/uL (1.2-3.4); Basophils % 0.4; Eosinophils % 3.3; HCT 32.5 % (36.0-46.0); Immature Grans % 0.4; Lymphocytes % 16.7; MCH 26.3 pg (27.0-33.0); MCHC 30.8 % (32.0-36.0); MCV 85.5 fL (80-95); MPV 11.1 fL (8.0-11.0); Monocytes % 13.1; Neutrophils % 66.1; Nucleated RBC 0 %; Platelet Count 419 10^3/uL (130-400); RDW 19.7 % (11.7-14.6); RDW-SD 60.5 fL
[2021-06-06 13:50] LABS: Absolute Monocyte Count 1.76 10^3/uL (0.1-0.8); Absolute Neutrophil Count 8.86 10^3/uL (1.2-6.7)
[2021-06-06 14:00] LABS: Diff Comment Diff Reviewed; RBC Morphology Normal
[2021-06-06 14:03] LABS: ALT 42 U/L (14-59); AST 98 U/L (15-37); Albumin 2.9 g/dL (3.4-5.0); Alkaline Phosphatase 279 U/L (46-116); Anion Gap 9.1 mmol/L (3-11); BUN 21 mg/dL (7-18); Bilirubin, Total 0.4 mg/dL (0.2-1.0); CO2 26.9 mmol/L (21.0-32.0); CREATININE 0.8 mg/dL (0.55-1.02); Calcium 9.4 mg/dL (8.5-10.1); Chloride 100 mmol/L (98-107); Glucose 96 mg/dL (74-106); Potassium 4.1 mmol/L (3.5-5.1); Sodium 136 mmol/L (136-145); Total Protein 7.3 g/dL (6.4-8.2)
[2021-06-13] MEDS: Normal Saline Flush 10 ML SYR IVP (13:16)
[2021-06-13 13:35] LABS: Abs Immature Grans 0.04 10^3/uL (0.0-0.06); Absolute Basophil Count 0.05 10^3/uL (0.0-0.2); Absolute Eosinophil Count 0.14 10^3/uL (0.0-0.7); Absolute Lymphocyte Count 2.22 10^3/uL (1.2-3.4); Absolute Monocyte Count 0.94 10^3/uL (0.1-0.8); Absolute Neutrophil Count 3.34 10^3/uL (1.2-6.7); Basophils % 0.7; Eosinophils % 2.1; HCT 30.8 % (36.0-46.0); HGB 9.6 g/dL (11.2-15.7); Immature Grans % 0.6; MCHC 31.2 % (32.0-36.0); MCV 83.5 fL (80-95); Neutrophils % 49.6; Nucleated RBC 0 %; RBC 3.69 10^6/uL (3.93-5.22); RDW 18.6 % (11.7-14.6); RDW-SD 55.3 fL; WBC 6.73 10^3/uL (4.4-10.8)
[2021-06-13 13:47] LABS: ALT 39 U/L (14-59); AST 76 U/L (15-37); Albumin 2.8 g/dL (3.4-5.0); Alkaline Phosphatase 360 U/L (46-116); Anion Gap 8.1 mmol/L (3-11); BUN 23 mg/dL (7-18); Bilirubin, Total 0.4 mg/dL (0.2-1.0); CO2 27.9 mmol/L (21.0-32.0); CREATININE 0.8 mg/dL (0.55-1.02); Chloride 99 mmol/L (98-107); Glucose 103 mg/dL (74-106); Potassium 3.9 mmol/L (3.5-5.1); Sodium 135 mmol/L (136-145); Total Protein 7.6 g/dL (6.4-8.2)
[2021-06-13 14:05] LABS: Diff Comment Diff Reviewed
[2021-06-13 14:06] LABS: RBC Morphology Normal
[2021-06-27] MEDS: Normal Saline Flush 10 ML SYR IVP (12:48)
[2021-06-27 13:19] LABS: Abs Immature Grans 0.07 10^3/uL (0.0-0.06); Absolute Basophil Count 0.05 10^3/uL (0.0-0.2); Absolute Eosinophil Count 0.35 10^3/uL (0.0-0.7); Absolute Lymphocyte Count 2.04 10^3/uL (1.2-3.4); Absolute Monocyte Count 1.15 10^3/uL (0.1-0.8); Absolute Neutrophil Count 7.95 10^3/uL (1.2-6.7); Basophils % 0.4; HCT 29.9 % (36.0-46.0); HGB 9.2 g/dL (11.2-15.7); Immature Grans % 0.6; Lymphocytes % 17.6; MCH 26.7 pg (27.0-33.0); MCHC 30.8 % (32.0-36.0); MCV 86.7 fL (80-95); MPV 10.2 fL (8.0-11.0); Monocytes % 9.9; Neutrophils % 68.5; Nucleated RBC 0 %; Platelet Count 536 10^3/uL (130-400); RBC 3.45 10^6/uL (3.93-5.22); RDW-SD 59.9 fL; WBC 11.61 10^3/uL (4.4-10.8)
[2021-06-27 13:42] LABS: ALT 37 U/L (14-59); AST 92 U/L (15-37); Albumin 2.9 g/dL (3.4-5.0); Alkaline Phosphatase 311 U/L (46-116); Anion Gap 8.7 mmol/L (3-11); BUN 19 mg/dL (7-18); Bilirubin, Total 0.5 mg/dL (0.2-1.0); CO2 28.3 mmol/L (21.0-32.0); CREATININE 0.9 mg/dL (0.55-1.02); Calcium 9.8 mg/dL (8.5-10.1); Chloride 100 mmol/L (98-107); Glucose 99 mg/dL (74-106); Potassium 3.6 mmol/L (3.5-5.1); Sodium 137 mmol/L (136-145); TSH 3.57 uIU/mL (0.36-3.74); Total Protein 7.3 g/dL (6.4-8.2)
== END 2021-07-03 23:59 | disposition home or self-care (01) ==
LOC: INF 03:35
PROVIDERS: PCP Family Medicine; Visit Provider Internal Medicine
DX: C50.919 Malignant neoplasm of unspecified site of unspecified female breast (principal); R94.6 Abnormal results of thyroid function studies; C77.1 Secondary and unspecified malignant neoplasm of intrathoracic lymph nodes; Z45.2 Encounter for adjustment and management of vascular access device
CPT/HCPCS: 36415; 36591; 80053; 96523; 84439; 84443; 85025